=== PATIENT | female | born 1940 | race Caucasian/White ===

== ENCOUNTER 2017-09-14 07:32 | Observation (INO) | payer MEDICARE, OTHER ==
[~2017-09-14] VITALS: Ht 157.5 cm; Wt 68.8 kg
[2017-09-14 08:52] LABS: BASOPHILS ABSOLUTE AUTO 0.03 K/mm3 (0.00-0.23); BASOPHILS PERCENT AUTO 0 % (0-2); EOSINOPHILS PERCENT AUTO 1 % (0-6); Hematocrit 36.1 % (33.0-51.0); Hemoglobin 12.4 g/dL (11.5-16.0); IMMATURE GRAN ABSOLUTE AUTO 0.03 K/mm3 (0.00-0.10); IMMATURE GRAN PERCENT AUTO 0 % (0-1); LYMPHOCYTES ABSOLUTE AUTO 1.37 K/mm3 (0.84-5.20); LYMPHOCYTES PERCENT AUTO 17 % (21-46); MONOCYTES ABSOLUTE AUTO 0.47 K/mm3 (0.16-1.47); MONOCYTES PERCENT AUTO 6 % (4-13); Mean Corpuscular HGB 30.9 pg (26.0-34.0); Mean Corpuscular HGB Conc 34.3 g/dL (31.5-36.5); Mean Corpuscular Volume 90 fL (80-100); Mean Platelet Volume 11.1 fL (9.1-12.4); NEUTROPHILS ABSOLUTE AUTO 6.13 K/mm3 (1.96-9.15); NEUTROPHILS PERCENT AUTO 75 % (41-73); Platelet Count 160 K/mm3 (150-400); RDW Coefficient Variation 12.1 % (11.7-14.2); RDW Standard Deviation 39.7 fL (35.1-46.3); Red Blood Cell Count 4.01 M/mm3 (3.80-5.20); White Blood Cell Count 8.13 K/mm3 (4.00-11.30)
[2017-09-14 09:06] LABS: International Normalized Ratio 1.07
[2017-09-14 09:07] LABS: Bilirubin, Total 0.8 mg/dL (0.1-1.0); Calcium, Blood 10.3 mg/dL (8.5-10.1); Creatinine, Blood 1.35 mg/dL (0.40-1.00); Globulin, Blood 3.1 g/dL (2.2-4.0); Potassium, Blood 4.6 mmol/L (3.5-5.5); Total Protein, Blood 6.1 g/dL (6.4-8.2)
[2017-09-14] MEDS ORDERED: CELE100 PO (10:17)
[2017-09-14] MEDS ORDERED: DONE10 PO (10:18)
[2017-09-14] MEDS ORDERED: MEMA10 PO (10:18)
[2017-09-14] MEDS ORDERED: CITA20 PO (10:18)
[2017-09-14] MEDS ORDERED: ASPI81CH PO (10:19)
[2017-09-14] MEDS ORDERED: VITB2 PO (10:19)
[2017-09-14] MEDS ORDERED: CHOL10002 PO (10:19)
[2017-09-14] MEDS ORDERED: FISH OIL OMEGA1 EAC1 PO (10:20)
[2017-09-14] MEDS ORDERED: [UNRECOGNIZED DRUG - REMARK] PO (11:11)
[2017-09-14] MEDS ORDERED: TOCO1000 PO (11:12)
[2017-09-14] MEDS ORDERED: [UNRECOGNIZED DRUG - OTHER] PO (11:13)
[2017-09-14 12:25] LABS: Hematocrit 27.3 % (33.0-51.0); Hemoglobin 9.1 g/dL (11.5-16.0)
[2017-09-14] MEDS ORDERED: CYAN500 PO (12:33)
[2017-09-14] MEDS ORDERED: Multivitamin1 EAC1 PO (12:36)
[2017-09-14 16:43] LABS: Hematocrit 33.9 % (33.0-51.0); Hemoglobin 11.4 g/dL (11.5-16.0)
[2017-09-15 00:35] LABS: BASOPHILS ABSOLUTE AUTO 0.04 K/mm3 (0.00-0.23); BASOPHILS PERCENT AUTO 1 % (0-2); EOSINOPHILS ABSOLUTE AUTO 0.11 K/mm3 (0.00-0.68); EOSINOPHILS PERCENT AUTO 2 % (0-6); Hematocrit 33.8 % (33.0-51.0); Hemoglobin 11.3 g/dL (11.5-16.0); IMMATURE GRAN ABSOLUTE AUTO 0.02 K/mm3 (0.00-0.10); IMMATURE GRAN PERCENT AUTO 0 % (0-1); LYMPHOCYTES ABSOLUTE AUTO 1.49 K/mm3 (0.84-5.20); LYMPHOCYTES PERCENT AUTO 20 % (21-46); MONOCYTES ABSOLUTE AUTO 0.44 K/mm3 (0.16-1.47); MONOCYTES PERCENT AUTO 6 % (4-13); Mean Corpuscular HGB 30.8 pg (26.0-34.0); Mean Corpuscular HGB Conc 33.4 g/dL (31.5-36.5); Mean Corpuscular Volume 92 fL (80-100); Mean Platelet Volume 10.8 fL (9.1-12.4); NEUTROPHILS ABSOLUTE AUTO 5.32 K/mm3 (1.96-9.15); NEUTROPHILS PERCENT AUTO 72 % (41-73); Platelet Count 149 K/mm3 (150-400); RDW Coefficient Variation 12.2 % (11.7-14.2); RDW Standard Deviation 41.1 fL (35.1-46.3); Red Blood Cell Count 3.67 M/mm3 (3.80-5.20); White Blood Cell Count 7.42 K/mm3 (4.00-11.30)
[2017-09-15 00:51] LABS: Albumin, Blood 3.1 g/dL (3.4-5.0); Bilirubin, Total 1.1 mg/dL (0.1-1.0); Bun/Creatinine Ratio 33.3 (12.0-20.0); Calcium, Blood 8.8 mg/dL (8.5-10.1); Creatinine, Blood 1.23 mg/dL (0.40-1.00); Globulin, Blood 3.1 g/dL (2.2-4.0); Potassium, Blood 4.2 mmol/L (3.5-5.5); Total Protein, Blood 6.2 g/dL (6.4-8.2)
[2017-09-15] MEDS ORDERED: CALCA400CH PO (12:31)
[2017-09-15] MEDS ORDERED: CHOL10002 (12:34)
[2017-09-15] MEDS ORDERED: PANT40 PO (12:35)
== END 2017-09-15 15:02 | disposition home or self-care (01) ==
LOC: ER 07:32 → PCU 07:33
PROVIDERS: Emergency Medicine; Family Medicine
PROC: 0DJ08ZZ Inspection of Upper Intestinal Tract, Via Natural or Artificial Opening Endoscopic (ICD-10-PCS; principal; 2017-09-14)
DX: K92.1 Melena (principal); N17.9 Acute kidney failure, unspecified; K20.9 Esophagitis, unspecified; K25.9 Gastric ulcer, unspecified as acute or chronic, without hemorrhage or perforation; K29.80 Duodenitis without bleeding; D64.9 Anemia, unspecified; G30.9 Alzheimer's disease, unspecified; F02.80 Dementia in other diseases classified elsewhere, unspecified severity, without behavioral disturbance, psychotic disturbance, mood disturbance, and anxiety; I10 Essential (primary) hypertension; E11.9 Type 2 diabetes mellitus without complications; M19.90 Unspecified osteoarthritis, unspecified site; E66.9 Obesity, unspecified; Z79.899 Other long term (current) drug therapy
CPT/HCPCS: 36415; 74018; 80053; 82272; 85014; 85018; 85025; 85610; 85730; 86850; 86900; 86901; 93005; 93010; 96361; 96374; 99285-25; C9113; G0378; J7030; J7120

== ENCOUNTER 2018-10-10 09:52 | Emergency (ER) | payer MEDICARE, OTHER ==
[~2018-10-10] VITALS: Ht 165.1 cm; Wt 68.0 kg
[~2018-10-10 09:52] MED LIST: ASPI81CH PO; CALCA400CH PO; CELE100 PO; CHOL10002; CYAN500 PO; FISH OIL OMEGA1 EAC1 PO; FISH OIL PO; LORA.5 PO; MEMA10 PO; Multivitamin1 EAC1 PO; PANT40 PO; TOCO1000 PO; VITAMIN D3400 UNI1 PO; VITB2 PO; [UNRECOGNIZED DRUG - OTHER] PO
[2018-10-10 10:27] LABS: Source, Urine Catheter
[2018-10-10 10:30] LABS: Bilirubin, Urine Neg (Neg); Blood, Urine Neg (Neg); Glucose Qualitative, Urine 4+ (Neg); Ketones, Urine Neg (Neg); Leukocyte Esterase, Urine 3+ (Neg); Nitrite, Urine Neg (Neg); Protein, Urine Neg (Neg); Urobilinogen, Urine NORM (Normal)
[2018-10-10 10:33] LABS: BASOPHILS ABSOLUTE AUTO 0.01 K/mm3 (0.00-0.23); BASOPHILS PERCENT AUTO 0 % (0-2); EOSINOPHILS ABSOLUTE AUTO 0.03 K/mm3 (0.00-0.68); EOSINOPHILS PERCENT AUTO 0 % (0-6); Hematocrit 33.1 % (33.0-51.0); Hemoglobin 10.7 g/dL (11.5-16.0); IMMATURE GRAN ABSOLUTE AUTO 0.05 K/mm3 (0.00-0.10); IMMATURE GRAN PERCENT AUTO 1 % (0-1); LYMPHOCYTES PERCENT AUTO 5 % (21-46); MONOCYTES ABSOLUTE AUTO 0.13 K/mm3 (0.16-1.47); MONOCYTES PERCENT AUTO 2 % (4-13); Mean Corpuscular HGB 27.9 pg (26.0-34.0); Mean Corpuscular HGB Conc 32.3 g/dL (31.5-36.5); Mean Corpuscular Volume 86 fL (80-100); NEUTROPHILS ABSOLUTE AUTO 7.15 K/mm3 (1.96-9.15); NEUTROPHILS PERCENT AUTO 92 % (41-73); RDW Coefficient Variation 14.6 % (11.7-14.2); RDW Standard Deviation 44.6 fL (35.1-46.3); Red Blood Cell Count 3.83 M/mm3 (3.80-5.20); White Blood Cell Count 7.77 K/mm3 (4.00-11.30)
[2018-10-10] MEDS ORDERED: CITA20 PO ×2 (10:34→12:50)
[2018-10-10] MEDS ORDERED: DONE10 PO ×2 (10:34→12:49)
[2018-10-10 10:35] LABS: Appearance, Urine Clear (Clear); Color, Urine Yellow (P-Yellow)
[2018-10-10] MEDS ORDERED: PANT20 PO ×2 (10:35→12:57)
[2018-10-10] MEDS ORDERED: QUET25 PO ×2 (10:35→12:57)
[2018-10-10 10:37] LABS: Bacteria Many /hpf; Red Blood Cells, Urine Not Seen /hpf (0-2); Squamous Epithelial Cells Rare /hpf (Few); White Blood Cells, Urine 0-2 /hpf (0-5)
[2018-10-10 10:39] LABS: Platelet Count 105 K/mm3 (150-400)
[2018-10-10 10:58] LABS: Albumin, Blood 1.7 g/dL (3.4-5.0); Albumin/Globulin Ratio 0.5 (0.8-1.8); Bilirubin, Total 0.4 mg/dL (0.1-1.0); Calcium, Blood 9.4 mg/dL (8.5-10.1); Creatinine, Blood 7.47 mg/dL (0.40-1.00); Globulin, Blood 3.7 g/dL (2.2-4.0); Potassium, Blood 6.2 mmol/L (3.5-5.5); Total Protein, Blood 5.4 g/dL (6.4-8.2)
[2018-10-10] MEDS ORDERED: NAMENDA XR14 MG PO (12:50)
[2018-10-10] MEDS ORDERED: IRBE150 PO (12:51)
[2018-10-10] MEDS ORDERED: LORA.5 PO (12:59)
[2018-10-10] MEDS ORDERED: Senna Plus Tab1 EACH PO (12:59)
[2018-10-10] MEDS ORDERED: Milk Of Ma400 MG/5 M PO (13:00)
== END 2018-10-10 15:10 | disposition home or self-care (01) ==
LOC: ER 09:52
PROVIDERS: Internal Medicine
DX: N17.9 Acute kidney failure, unspecified (principal); R73.9 Hyperglycemia, unspecified; E86.0 Dehydration; N18.9 Chronic kidney disease, unspecified; J18.9 Pneumonia, unspecified organism; E87.1 Hypo-osmolality and hyponatremia; Z79.899 Other long term (current) drug therapy
CPT/HCPCS: 36415; 51701; 71046; 80053; 81001; 85025; 87086; 93005; 93010; 96361-59; 96365-59; 96367-59; 99284-25; J0456; J0696; J1815; J7030; J7050